=== PATIENT | male | born 1950 | race Caucasian/White ===

== ENCOUNTER 2023-11-23 17:11 | Emergency (ER) | payer MEDICARE ==
[2023-11-23] MEDS: Bacitracin Oint 1 GM U/D Packet TOP ONE (17:39)
[2023-11-23] MEDS: Acetaminophen/HYDROcodone 325-5 MG Tab PO ONE (18:08)
== END 2023-11-23 18:47 | disposition home or self-care (01) ==
LOC: LB.ED 17:11
DX: M25.512 Pain in left shoulder (principal); Z79.899 Other long term (current) drug therapy
CPT/HCPCS: 73030-LT; 73590-LT; 99283; A9270-GY